=== PATIENT | male | born 1985 | race Two or more races ===

== ENCOUNTER 2017-10-10 15:17 | Inpatient (IN) | payer MEDICAID, OTHER ==
[~2017-10-10] VITALS: Ht 182.9 cm; Wt 106.6 kg
[~2017-10-10 15:17] MED LIST: ALBU8HFA IH; BENZ1TAB70 PO; BUSP10TA23 PO; DIVA500T52 PO; DSS100 PO; GABA-533 PO; HALO10TA15 PO; HYDR25TA PO; QUET100T PO
[2017-10-10] MEDS ORDERED: DIPH25 PO (15:24)
[2017-10-10 15:58] LABS: BASOPHILS % (AUTO) 0.6 % (0.0-2.0); EOSINOPHILS % (AUTO) 0.6 % (1.0-6.0); HEMATOCRIT 44.4 % (41-53); HEMOGLOBIN 15.4 g/dL (13.5-17.5); LYMPHOCYTES # (AUTO) 1.9 K/uL (1.0-4.8); MEAN CORPUSCULAR HEMOGLOBIN 31.1 pg (26.0-34.0); MEAN CORPUSCULAR HGB CONC 34.6 G/dL (31.0-37.0); MEAN CORPUSCULAR VOLUME 90 fL (80-100); MONOCYTES # (AUTO) 0.8 K/uL (0.1-1.0); MONOCYTES % (AUTO) 9.3 % (2.0-9.0); NEUTROPHILS # (AUTO) 5.9 K/uL (1.8-7.7); NEUTROPHILS % (AUTO) 67.5 % (40.0-70.0); PLATELET COUNT (AUTO) 302 K/uL (150-450); RED BLOOD CELL COUNT(AUTO) 4.94 MIL/uL (4.50-5.90); RED CELL DISTRIBUTION WIDTH 13.4 % (11.5-14.5); WHITE BLOOD COUNT (AUTO) 8.8 K/uL (4.5-11.0)
[2017-10-10 16:11] LABS: ANION GAP 10 mmol/L (8-16); CALCIUM, TOTAL 9.6 mg/dL (8.8-10.5); CARBON DIOXIDE 25 mmol/L (22-29); CHLORIDE 106 mmol/L (98-107); GLOMERULAR FILTR. RATE CALC > 60 mL/min (>60); SODIUM SERUM 141 mmol/L (136-145); UREA NITROGEN, BLOOD 13 mg/dL (7-18)
[2017-10-10 16:18] LABS: ALANINE AMINOTRANSFERASE 27 U/L (12-78); ALBUMIN 4.2 g/dL (3.4-5.0); BILIRUBIN,TOTAL 0.4 mg/dL (0.1-1.0); TOTAL PROTEIN, SERUM 8.2 g/dL (6.4-8.2)
[2017-10-10 16:28] LABS: VALPROIC ACID < 3 mcg/mL (50-100)
[2017-10-10 16:43] LABS: ASPARTATE AMINOTRANSFERASE 27 U/L (15-37)
[2017-10-10] MEDS ORDERED: LORazepam 2 MG TABLET PO PRN (17:45)
[2017-10-10] MEDS ORDERED: HALOPERIDOL 5 MG TABLET PO PRN (17:45)
[2017-10-10] MEDS ORDERED: LORazepam 2 MG TABLET PO ONE (18:30)
[2017-10-11] MEDS ORDERED: INFLUENZA VIRUS VACCINE QVS 2017-18 (3YR+)/PF 60 MCG/0.5 ML SYRINGE IM ONE (02:15)
[2017-10-11] MEDS ORDERED: PNEUMOCOCCAL VACCINE POLYVALENT 0.5 ML VIAL [PPSV23] IM ONE (02:15)
[2017-10-11 02:27] VITALS: BP 134/86
[2017-10-11] MEDS ORDERED: IBUPROFEN 600 MG TABLET PO PRN (07:45)
[2017-10-11] MEDS ORDERED: ONDANSETRON HCL 4 MG TABLET PO PRN (07:45)
[2017-10-11] MEDS ORDERED: MAG HYDROX/AL HYDROX/SIMETH ES 30 ML SUSPENSION UDCUP PO PRN (07:45)
[2017-10-11] MEDS ORDERED: CloNIDine HCL 0.1 MG TABLET PO PRN (07:45)
[2017-10-11] MEDS ORDERED: BACITRACIN 28.4 GM OINTMENT TP PRN (07:45)
[2017-10-11] MEDS ORDERED: PETROLATUM,WHITE 71 GM JELLY TP PRN (07:45)
[2017-10-11] MEDS ORDERED: ALBUTEROL SULFATE HFA 90 MCG/PUFF 8 GM INHALER IH PRN (07:45)
[2017-10-11] MEDS ORDERED: MAGNESIUM HYDROXIDE SUSPENSION 30 ML UDCUP PO PRN (07:45)
[2017-10-11] MEDS ORDERED: LOPERAMIDE HCL 2 MG CAPSULE PO PRN (07:45)
[2017-10-11] MEDS ORDERED: ACETAMINOPHEN 325 MG TABLET PO PRN (07:45)
[2017-10-11 10:33] LABS: APPEARANCE,URINE CLEAR (CLEAR); GLUCOSE, URINE (UA) NEGATIVE (NEGATIVE); KETONES,URINE NEGATIVE (NEGATIVE); LEUKOCYTE ESTERASE ,URINE NEGATIVE (NEGATIVE); OCCULT BLOOD,URINE NEGATIVE (NEGATIVE); PROTEIN,URINE NEGATIVE (NEGATIVE)
[2017-10-11 10:38] LABS: ADD UA MICROSCOPIC NO
[2017-10-11 12:07] VITALS: BP 137/88
[2017-10-11] MEDS: QUEtiapine FUMARATE 200 MG TABLET PO SCH (16:42)
[2017-10-11 16:46] VITALS: BP 137/92
[2017-10-12] MEDS: QUEtiapine FUMARATE 200 MG TABLET PO SCH ×2 (08:00→16:29)
[2017-10-12 08:23] VITALS: BP 128/67
[2017-10-12 17:15] VITALS: BP 129/79
[2017-10-13] MEDS ORDERED: INFLUENZA VIRUS VACCINE QVS 2017-18 (3YR+)/PF 60 MCG/0.5 ML SYRINGE IM ONE (03:45)
[2017-10-13] MEDS: QUEtiapine FUMARATE 200 MG TABLET PO SCH ×2 (08:07→17:10)
[2017-10-13 09:28] VITALS: BP 128/84
[2017-10-13 17:01] VITALS: BP 119/89
[2017-10-13] MEDS: ZOLPIDEM TARTRATE 10 MG TABLET PO PRN (20:37)
[2017-10-14 08:36] VITALS: BP 132/90
[2017-10-14] MEDS: QUEtiapine FUMARATE 200 MG TABLET PO SCH ×2 (08:38→16:20)
[2017-10-14 16:00] VITALS: BP 124/66
[2017-10-15 08:43] VITALS: BP 115/64
[2017-10-15] MEDS: QUEtiapine FUMARATE 200 MG TABLET PO SCH ×2 (09:20→16:29)
[2017-10-15 16:33] VITALS: BP 132/87
[2017-10-15] MEDS: ZOLPIDEM TARTRATE 10 MG TABLET PO PRN (20:15)
[2017-10-16] MEDS: QUEtiapine FUMARATE 200 MG TABLET PO SCH ×2 (08:22→16:48)
[2017-10-16] MEDS: BENZOCAINE/MENTHOL LOZENGE [8 LOZENGES/PACKET] MM PRN ×2 (08:56→22:58)
[2017-10-16 09:13] VITALS: BP 140/78
[2017-10-16 16:21] VITALS: BP 127/84
[2017-10-17 01:53] VITALS: BP 131/85
[2017-10-17] MEDS: ZOLPIDEM TARTRATE 10 MG TABLET PO PRN (01:54)
[2017-10-17 08:32] VITALS: BP 121/93
[2017-10-17] MEDS: QUEtiapine FUMARATE 200 MG TABLET PO SCH (09:02)
== END 2017-10-17 15:25 | disposition home or self-care (01) | DRG 750 ==
LOC: EMS 15:20 → 3EC 10-11 00:45
PROVIDERS: ADMIT Psychiatry & Neurology Child & Adolescent Psychiatry; ATTEND Psychiatry & Neurology Child & Adolescent Psychiatry
DX: F25.1 Schizoaffective disorder, depressive type (principal); E66.9 Obesity, unspecified; F12.90 Cannabis use, unspecified, uncomplicated; Z71.51 Drug abuse counseling and surveillance of drug abuser; G47.00 Insomnia, unspecified; J45.909 Unspecified asthma, uncomplicated; K59.00 Constipation, unspecified; Z79.899 Other long term (current) drug therapy; Z28.21 Immunization not carried out because of patient refusal
CPT/HCPCS: 99285; G0480

== ENCOUNTER 2018-06-08 16:40 | Inpatient (IN) | payer MEDICAID, OTHER ==
[~2018-06-08] VITALS: Ht 175.3 cm; Wt 103.0 kg
[~2018-06-08 16:40] MED LIST changes: -ALBU8HFA IH; -BENZ1TAB70 PO; -BUSP10TA23 PO; -DIVA500T52 PO; -DSS100 PO; -GABA-533 PO; -HALO10TA15 PO; -HYDR25TA PO
[2018-06-08 18:03] LABS: BASOPHILS % (AUTO) 0.8 % (0.0-2.0); EOSINOPHILS % (AUTO) 1.9 % (1.0-6.0); HEMATOCRIT 48.2 % (41-53); HEMOGLOBIN 16.6 g/dL (13.5-17.5); LYMPHOCYTES # (AUTO) 1.9 K/uL (1.0-4.8); LYMPHOCYTES % (AUTO) 21.4 % (22.0-44.0); MEAN CORPUSCULAR HEMOGLOBIN 30.7 pg (26.0-34.0); MEAN CORPUSCULAR HGB CONC 34.4 G/dL (31.0-37.0); MEAN CORPUSCULAR VOLUME 89 fL (80-100); MONOCYTES # (AUTO) 0.9 K/uL (0.1-1.0); MONOCYTES % (AUTO) 10.1 % (2.0-9.0); NEUTROPHILS # (AUTO) 5.7 K/uL (1.8-7.7); NEUTROPHILS % (AUTO) 65.8 % (40.0-70.0); PLATELET COUNT (AUTO) 267 K/uL (150-450); RED BLOOD CELL COUNT(AUTO) 5.41 MIL/uL (4.50-5.90); RED CELL DISTRIBUTION WIDTH 13.8 % (11.5-14.5)
[2018-06-08 18:13] LABS: ANION GAP 11 mmol/L (8-16); CALCIUM, TOTAL 9.9 mg/dL (8.8-10.5); CARBON DIOXIDE 26 mmol/L (22-29); CHLORIDE 102 mmol/L (98-107); CREATININE 0.88 mg/dL (0.60-1.30); GLOMERULAR FILTR. RATE CALC > 60 mL/min (>60); GLUCOSE,RANDOM 109 mg/dL (70-110); POTASSIUM 3.8 mmol/L (3.5-5.1); SODIUM SERUM 139 mmol/L (136-145); UREA NITROGEN, BLOOD 15 mg/dL (7-18)
[2018-06-08 18:19] LABS: ALANINE AMINOTRANSFERASE 37 U/L (12-78); ALBUMIN 4.3 g/dL (3.4-5.0); ALKALINE PHOSPHATASE 86 U/L (46-116); ASPARTATE AMINOTRANSFERASE 39 U/L (15-37); BILIRUBIN,TOTAL 0.7 mg/dL (0.1-1.0); TOTAL PROTEIN, SERUM 7.8 g/dL (6.4-8.2)
[2018-06-09 09:12] LABS: CHOL/HDL RATIO 3.9 (4.2-7.3)
[2018-06-09] MEDS ORDERED: QUET200T PO (15:27)
[2018-06-09 16:12] VITALS: BP 140/66
[2018-06-09] MEDS ORDERED: ALBUTEROL SULFATE HFA 90 MCG/PUFF 8 GM INHALER IH PRN (16:30)
[2018-06-09] MEDS ORDERED: NICOTINE 14 MG/24 HOUR PATCH TD PRN (16:30)
[2018-06-09] MEDS ORDERED: IBUPROFEN 400 MG TABLET PO PRN (16:30)
[2018-06-09] MEDS ORDERED: ACETAMINOPHEN 325 MG TABLET PO PRN (16:30)
[2018-06-09] MEDS ORDERED: CloNIDine HCL 0.1 MG TABLET PO PRN (16:30)
[2018-06-09] MEDS ORDERED: MAG HYDROX/AL HYDROX/SIMETH ES 30 ML SUSPENSION UDCUP PO PRN (16:30)
[2018-06-09] MEDS ORDERED: ONDANSETRON HCL 4 MG TABLET PO PRN (16:30)
[2018-06-09] MEDS ORDERED: MAGNESIUM HYDROXIDE SUSPENSION 30 ML UDCUP PO PRN (16:30)
[2018-06-09] MEDS ORDERED: DOCUSATE SODIUM 100 MG CAPSULE PO PRN (16:30)
[2018-06-09] MEDS ORDERED: GuaiFENesin/D-METHORPHAN [SUGAR-FREE] 200-20MG/10 ML SYRUP UDCUP PO PRN (16:30)
[2018-06-09] MEDS ORDERED: PETROLATUM,WHITE 71 GM JELLY TP PRN (16:30)
[2018-06-09] MEDS ORDERED: LOPERAMIDE HCL 2 MG CAPSULE PO PRN (16:30)
[2018-06-09] MEDS: BENZTROPINE MESYLATE 0.5 MG TABLET PO SCH (16:42)
[2018-06-09] MEDS: QUEtiapine FUMARATE 300 MG TABLET PO SCH (16:42)
[2018-06-09] MEDS: LORazepam 2 MG TABLET PO PRN (16:42)
[2018-06-10 06:11] VITALS: BP 134/73
[2018-06-10 08:22] VITALS: BP 112/56
[2018-06-10] MEDS: BENZTROPINE MESYLATE 0.5 MG TABLET PO SCH ×2 (08:34→16:32)
[2018-06-10] MEDS: QUEtiapine FUMARATE 300 MG TABLET PO SCH ×2 (08:34→16:32)
[2018-06-10 08:40] LABS: BASOPHILS % (AUTO) 0.9 % (0.0-2.0); EOSINOPHILS % (AUTO) 3.6 % (1.0-6.0); HEMATOCRIT 44.1 % (41-53); HEMOGLOBIN 15.5 g/dL (13.5-17.5); LYMPHOCYTES # (AUTO) 1.4 K/uL (1.0-4.8); LYMPHOCYTES % (AUTO) 20.7 % (22.0-44.0); MEAN CORPUSCULAR HEMOGLOBIN 31.4 pg (26.0-34.0); MEAN CORPUSCULAR HGB CONC 35.1 G/dL (31.0-37.0); MEAN CORPUSCULAR VOLUME 90 fL (80-100); MONOCYTES # (AUTO) 0.6 K/uL (0.1-1.0); MONOCYTES % (AUTO) 8.8 % (2.0-9.0); NEUTROPHILS # (AUTO) 4.5 K/uL (1.8-7.7); PLATELET COUNT (AUTO) 233 K/uL (150-450); RED BLOOD CELL COUNT(AUTO) 4.92 MIL/uL (4.50-5.90); RED CELL DISTRIBUTION WIDTH 13.6 % (11.5-14.5)
[2018-06-10 09:02] LABS: HEMOGLOBIN A1C 5.2 % (4.5-6.2)
[2018-06-10 09:49] LABS: ALANINE AMINOTRANSFERASE 31 U/L (12-78); ALBUMIN 3.5 g/dL (3.4-5.0); ALKALINE PHOSPHATASE 84 U/L (46-116); ANION GAP 11 mmol/L (8-16); ASPARTATE AMINOTRANSFERASE 24 U/L (15-37); BILIRUBIN,TOTAL 0.4 mg/dL (0.1-1.0); CALCIUM, TOTAL 8.6 mg/dL (8.8-10.5); CARBON DIOXIDE 25 mmol/L (22-29); CHLORIDE 103 mmol/L (98-107); CHOL/HDL RATIO 4.1 (4.2-7.3); CHOLESTEROL 126 mg/dL (131-200); CREATININE 0.87 mg/dL (0.60-1.30); GLOMERULAR FILTR. RATE CALC > 60 mL/min (>60); GLUCOSE,RANDOM 98 mg/dL (70-110); HDL CHOLESTEROL 31 mg/dL (40-60); LDL CHOL (CALC.) 68 mg/dL (0-130); POTASSIUM 3.6 mmol/L (3.5-5.1); SODIUM SERUM 139 mmol/L (136-145); THYROID STIMULATING HORMONE 1.47 uIU/mL (0.36-3.74); TOTAL PROTEIN, SERUM 6.5 g/dL (6.4-8.2); TRIGLYCERIDES 134 mg/dL (15-150); UREA NITROGEN, BLOOD 14 mg/dL (7-18)
[2018-06-10 16:00] VITALS: BP 124/77
[2018-06-11 02:23] VITALS: BP 122/78
[2018-06-11 08:05] VITALS: BP 140/82
[2018-06-11] MEDS: QUEtiapine FUMARATE 300 MG TABLET PO SCH ×2 (08:35→16:39)
[2018-06-11] MEDS: BENZTROPINE MESYLATE 0.5 MG TABLET PO SCH ×2 (08:36→16:39)
[2018-06-11 16:26] VITALS: BP 130/78
[2018-06-11] MEDS: LORazepam 2 MG TABLET PO PRN ×2 (16:39→21:01)
[2018-06-11] MEDS: ZOLPIDEM TARTRATE 10 MG TABLET PO PRN (21:01)
[2018-06-12 02:30] VITALS: BP 127/72
[2018-06-12 08:00] VITALS: BP 134/82
[2018-06-12] MEDS: BENZTROPINE MESYLATE 0.5 MG TABLET PO SCH ×2 (09:05→16:09)
[2018-06-12] MEDS: QUEtiapine FUMARATE 200 MG TABLET PO SCH ×2 (09:05→16:10)
[2018-06-12 16:00] VITALS: BP 140/86
[2018-06-12] MEDS: LORazepam 2 MG TABLET PO PRN (16:10)
[2018-06-12] MEDS: ZOLPIDEM TARTRATE 10 MG TABLET PO PRN (20:05)
[2018-06-13 00:05] VITALS: BP 127/83
[2018-06-13 08:00] VITALS: BP 139/85
[2018-06-13] MEDS: QUEtiapine FUMARATE 200 MG TABLET PO SCH ×2 (08:14→16:09)
[2018-06-13] MEDS: BENZTROPINE MESYLATE 0.5 MG TABLET PO SCH ×2 (08:14→16:10)
[2018-06-13] MEDS: LORazepam 2 MG TABLET PO PRN ×2 (09:17→16:10)
[2018-06-13 16:12] VITALS: BP 145/90
[2018-06-14 06:06] VITALS: BP 125/82
[2018-06-14 08:08] VITALS: BP 128/73
[2018-06-14] MEDS: LORazepam 2 MG TABLET PO PRN ×2 (08:47→17:03)
[2018-06-14] MEDS: QUEtiapine FUMARATE 200 MG TABLET PO SCH ×2 (08:47→17:03)
[2018-06-14] MEDS: BENZTROPINE MESYLATE 0.5 MG TABLET PO SCH ×2 (08:47→17:03)
[2018-06-14 16:07] VITALS: BP 138/73
[2018-06-15 01:57] VITALS: BP 138/79
[2018-06-15 08:05] VITALS: BP 136/75
[2018-06-15] MEDS: QUEtiapine FUMARATE 200 MG TABLET PO SCH ×2 (08:52→16:38)
[2018-06-15] MEDS: BENZTROPINE MESYLATE 0.5 MG TABLET PO SCH ×2 (08:52→16:38)
[2018-06-15 16:05] VITALS: BP 132/88
[2018-06-15] MEDS: LORazepam 2 MG TABLET PO PRN (16:38)
[2018-06-16 00:12] VITALS: BP 125/62
[2018-06-16 08:08] VITALS: BP 132/88
[2018-06-16] MEDS: QUEtiapine FUMARATE 200 MG TABLET PO SCH ×2 (08:43→16:41)
[2018-06-16] MEDS: BENZTROPINE MESYLATE 0.5 MG TABLET PO SCH ×2 (08:43→16:41)
[2018-06-16 16:39] VITALS: BP 135/75
[2018-06-16] MEDS: LORazepam 2 MG TABLET PO PRN (16:41)
[2018-06-16 17:06] VITALS: BP 138/75
[2018-06-16] MEDS: ZOLPIDEM TARTRATE 10 MG TABLET PO PRN (20:19)
[2018-06-16] MEDS: HALOPERIDOL 5 MG TABLET PO PRN (20:27)
[2018-06-17 00:23] VITALS: BP 116/73
[2018-06-17 08:08] VITALS: BP 140/73
[2018-06-17] MEDS: BENZTROPINE MESYLATE 0.5 MG TABLET PO SCH ×2 (08:31→16:07)
[2018-06-17] MEDS: QUEtiapine FUMARATE 200 MG TABLET PO SCH ×2 (08:31→16:07)
[2018-06-17] MEDS: HALOPERIDOL 5 MG TABLET PO PRN (16:07)
[2018-06-17 16:08] VITALS: BP 130/79
[2018-06-17] MEDS: ZOLPIDEM TARTRATE 10 MG TABLET PO PRN (20:38)
[2018-06-18 06:46] VITALS: BP 122/82
[2018-06-18 08:56] VITALS: BP 134/84
[2018-06-18] MEDS: QUEtiapine FUMARATE 200 MG TABLET PO SCH ×2 (09:24→16:39)
[2018-06-18] MEDS: LORazepam 2 MG TABLET PO PRN ×2 (09:24→20:40)
[2018-06-18] MEDS: BENZTROPINE MESYLATE 0.5 MG TABLET PO SCH (09:25)
[2018-06-18 16:32] VITALS: BP 132/80
[2018-06-18] MEDS ORDERED: BENZTROPINE MESYLATE 1 MG TABLET PO SCH (17:00)
[2018-06-18] MEDS: ZOLPIDEM TARTRATE 10 MG TABLET PO PRN (20:40)
[2018-06-19 05:38] VITALS: BP 138/88
[2018-06-19 08:00] VITALS: BP 140/86
[2018-06-19] MEDS: LORazepam 2 MG TABLET PO PRN ×3 (09:15→20:30)
[2018-06-19] MEDS: QUEtiapine FUMARATE 200 MG TABLET PO SCH ×2 (09:15→16:18)
[2018-06-19] MEDS: BENZTROPINE MESYLATE 0.5 MG TABLET PO SCH ×2 (09:15→16:18)
[2018-06-19] MEDS: HALOPERIDOL 5 MG TABLET PO PRN (14:57)
[2018-06-19 16:00] VITALS: BP 134/85
[2018-06-19] MEDS: ZOLPIDEM TARTRATE 10 MG TABLET PO PRN (20:30)
[2018-06-20 02:10] VITALS: BP 135/68
[2018-06-20 08:09] VITALS: BP 128/90
[2018-06-20] MEDS: QUEtiapine FUMARATE 200 MG TABLET PO SCH ×2 (08:32→16:54)
[2018-06-20] MEDS: BENZTROPINE MESYLATE 0.5 MG TABLET PO SCH ×2 (08:32→16:54)
[2018-06-20] MEDS: LORazepam 2 MG TABLET PO PRN ×2 (09:21→16:54)
[2018-06-20] MEDS: HALOPERIDOL 5 MG TABLET PO PRN ×2 (09:21→16:54)
[2018-06-20 16:45] VITALS: BP 112/68
[2018-06-21 06:00] VITALS: BP 115/68
[2018-06-21 08:00] VITALS: BP 131/71
[2018-06-21] MEDS: QUEtiapine FUMARATE 200 MG TABLET PO SCH ×2 (08:39→16:34)
[2018-06-21] MEDS: BENZTROPINE MESYLATE 0.5 MG TABLET PO SCH ×2 (08:39→16:34)
[2018-06-21 16:00] VITALS: BP 128/79
[2018-06-21] MEDS: HALOPERIDOL 5 MG TABLET PO PRN (16:34)
[2018-06-21] MEDS: LORazepam 2 MG TABLET PO PRN (16:34)
[2018-06-22 06:23] VITALS: BP 125/83
[2018-06-22 08:26] VITALS: BP 142/82
[2018-06-22] MEDS: QUEtiapine FUMARATE 200 MG TABLET PO SCH ×2 (08:44→16:51)
[2018-06-22] MEDS: BENZTROPINE MESYLATE 0.5 MG TABLET PO SCH ×2 (08:44→16:50)
[2018-06-22 16:10] VITALS: BP 122/74
[2018-06-22] MEDS: HALOPERIDOL 5 MG TABLET PO PRN (16:50)
[2018-06-22] MEDS: LORazepam 2 MG TABLET PO PRN ×2 (16:50→20:50)
[2018-06-22] MEDS: ZOLPIDEM TARTRATE 10 MG TABLET PO PRN (20:50)
[2018-06-23 06:43] VITALS: BP 132/75
[2018-06-23 08:05] VITALS: BP 121/75
[2018-06-23] MEDS: QUEtiapine FUMARATE 200 MG TABLET PO SCH ×2 (08:22→16:22)
[2018-06-23] MEDS: BENZTROPINE MESYLATE 0.5 MG TABLET PO SCH ×2 (08:22→16:22)
[2018-06-23 16:00] VITALS: BP 122/73
[2018-06-23] MEDS: HALOPERIDOL 5 MG TABLET PO PRN (16:22)
[2018-06-23] MEDS: LORazepam 2 MG TABLET PO PRN (16:22)
[2018-06-24 02:16] VITALS: BP 119/70
[2018-06-24 08:06] VITALS: BP 140/83
[2018-06-24] MEDS: QUEtiapine FUMARATE 200 MG TABLET PO SCH ×2 (08:06→16:30)
[2018-06-24] MEDS: BENZTROPINE MESYLATE 0.5 MG TABLET PO SCH ×2 (08:06→16:30)
[2018-06-24 16:00] VITALS: BP 126/85
[2018-06-24] MEDS: LORazepam 2 MG TABLET PO PRN (16:30)
[2018-06-25 06:22] VITALS: BP 136/63
[2018-06-25 08:05] VITALS: BP 135/84
[2018-06-25] MEDS: LORazepam 2 MG TABLET PO PRN ×2 (08:31→16:40)
[2018-06-25] MEDS: HALOPERIDOL 5 MG TABLET PO PRN ×2 (08:31→16:40)
[2018-06-25] MEDS: QUEtiapine FUMARATE 200 MG TABLET PO SCH ×2 (08:31→16:40)
[2018-06-25] MEDS: BENZTROPINE MESYLATE 0.5 MG TABLET PO SCH ×2 (08:31→16:39)
[2018-06-25 16:00] VITALS: BP 136/88
[2018-06-25] MEDS: ZOLPIDEM TARTRATE 10 MG TABLET PO PRN (20:23)
[2018-06-26 00:23] VITALS: BP 106/61
[2018-06-26 08:32] VITALS: BP 121/69
[2018-06-26] MEDS: QUEtiapine FUMARATE 200 MG TABLET PO SCH ×2 (08:40→16:36)
[2018-06-26] MEDS: LORazepam 2 MG TABLET PO PRN (08:40)
[2018-06-26] MEDS: BENZTROPINE MESYLATE 0.5 MG TABLET PO SCH ×2 (08:40→16:36)
[2018-06-26] MEDS: HALOPERIDOL 5 MG TABLET PO PRN (08:40)
[2018-06-26 16:07] VITALS: BP 128/85
[2018-06-26] MEDS: ZOLPIDEM TARTRATE 10 MG TABLET PO PRN (20:29)
[2018-06-27 02:56] VITALS: BP 121/81
[2018-06-27] MEDS: BENZTROPINE MESYLATE 0.5 MG TABLET PO SCH ×2 (08:33→16:54)
[2018-06-27] MEDS: QUEtiapine FUMARATE 200 MG TABLET PO SCH ×2 (08:33→16:54)
[2018-06-27 10:45] VITALS: BP 136/82
[2018-06-27 16:28] VITALS: BP 136/79
[2018-06-27] MEDS: LORazepam 2 MG TABLET PO PRN (16:54)
[2018-06-27] MEDS: HALOPERIDOL 5 MG TABLET PO PRN (16:54)
[2018-06-28 02:18] VITALS: BP 134/76
[2018-06-28 08:05] VITALS: BP 130/82
[2018-06-28] MEDS: QUEtiapine FUMARATE 200 MG TABLET PO SCH ×2 (08:35→16:31)
[2018-06-28] MEDS: BENZTROPINE MESYLATE 0.5 MG TABLET PO SCH ×2 (08:35→16:31)
[2018-06-28] MEDS: LORazepam 2 MG TABLET PO PRN (16:31)
[2018-06-28] MEDS: HALOPERIDOL 5 MG TABLET PO PRN (16:31)
[2018-06-28 16:58] VITALS: BP 101/66
[2018-06-29 00:25] VITALS: BP 115/69
[2018-06-29 08:06] VITALS: BP 134/76
[2018-06-29] MEDS: QUEtiapine FUMARATE 200 MG TABLET PO SCH ×2 (08:17→16:37)
[2018-06-29] MEDS: BENZTROPINE MESYLATE 0.5 MG TABLET PO SCH ×2 (08:18→16:37)
[2018-06-29 16:23] VITALS: BP 135/83
[2018-06-29] MEDS: LORazepam 2 MG TABLET PO PRN (16:37)
[2018-06-30 06:33] VITALS: BP 121/78
[2018-06-30] MEDS: BENZTROPINE MESYLATE 0.5 MG TABLET PO SCH ×2 (08:03→16:40)
[2018-06-30] MEDS: QUEtiapine FUMARATE 200 MG TABLET PO SCH ×2 (08:04→16:41)
[2018-06-30] MEDS: LORazepam 2 MG TABLET PO PRN ×2 (08:04→16:41)
[2018-06-30 08:08] VITALS: BP 137/91
[2018-06-30 16:08] VITALS: BP 126/82
[2018-06-30] MEDS: HALOPERIDOL 5 MG TABLET PO PRN (16:41)
[2018-06-30] MEDS: ZOLPIDEM TARTRATE 10 MG TABLET PO PRN (20:25)
[2018-07-01 06:27] VITALS: BP 123/85
[2018-07-01 08:09] VITALS: BP 122/82
[2018-07-01] MEDS: BENZTROPINE MESYLATE 0.5 MG TABLET PO SCH ×2 (08:44→16:12)
[2018-07-01] MEDS: QUEtiapine FUMARATE 200 MG TABLET PO SCH ×2 (08:44→16:12)
[2018-07-01] MEDS: LORazepam 2 MG TABLET PO PRN (16:12)
[2018-07-01 16:19] VITALS: BP 136/89
[2018-07-02 06:30] VITALS: BP 121/72
[2018-07-02 08:13] VITALS: BP 128/75
[2018-07-02] MEDS: QUEtiapine FUMARATE 200 MG TABLET PO SCH ×2 (08:55→16:11)
[2018-07-02] MEDS: BENZTROPINE MESYLATE 0.5 MG TABLET PO SCH ×2 (08:55→16:11)
[2018-07-02 16:00] VITALS: BP 134/81
[2018-07-02] MEDS: LORazepam 2 MG TABLET PO PRN (16:11)
[2018-07-03 06:10] VITALS: BP 133/78
[2018-07-03 08:11] VITALS: BP 127/70
[2018-07-03] MEDS: BENZTROPINE MESYLATE 0.5 MG TABLET PO SCH ×2 (08:11→17:02)
[2018-07-03] MEDS: QUEtiapine FUMARATE 200 MG TABLET PO SCH ×2 (08:11→17:02)
[2018-07-03] MEDS: LORazepam 2 MG TABLET PO PRN ×2 (09:37→17:02)
[2018-07-03] MEDS: HALOPERIDOL 5 MG TABLET PO PRN (09:37)
[2018-07-03 16:26] VITALS: BP 105/63
[2018-07-04 06:37] VITALS: BP 118/72
[2018-07-04] MEDS: BENZTROPINE MESYLATE 0.5 MG TABLET PO SCH ×2 (08:25→16:49)
[2018-07-04] MEDS: QUEtiapine FUMARATE 200 MG TABLET PO SCH ×2 (08:25→16:49)
[2018-07-04 08:29] VITALS: BP 132/67
[2018-07-04 16:08] VITALS: BP 131/83
[2018-07-04] MEDS: LORazepam 2 MG TABLET PO PRN (16:50)
[2018-07-04] MEDS: HALOPERIDOL 5 MG TABLET PO PRN (16:50)
[2018-07-04] MEDS: ZOLPIDEM TARTRATE 10 MG TABLET PO PRN (20:25)
[2018-07-05 06:30] VITALS: BP 114/62
[2018-07-05] MEDS: BENZTROPINE MESYLATE 0.5 MG TABLET PO SCH ×2 (08:32→16:33)
[2018-07-05] MEDS: QUEtiapine FUMARATE 200 MG TABLET PO SCH ×2 (08:33→16:33)
[2018-07-05 08:44] VITALS: BP 130/82
[2018-07-05 16:00] VITALS: BP 136/71
[2018-07-05] MEDS: LORazepam 2 MG TABLET PO PRN (16:33)
[2018-07-05] MEDS: HALOPERIDOL 5 MG TABLET PO PRN (16:33)
[2018-07-05] MEDS: ZOLPIDEM TARTRATE 10 MG TABLET PO PRN (20:16)
[2018-07-06 06:38] VITALS: BP 119/83
[2018-07-06 08:05] VITALS: BP 138/85
[2018-07-06] MEDS: BENZTROPINE MESYLATE 0.5 MG TABLET PO SCH ×2 (08:16→16:55)
[2018-07-06] MEDS: QUEtiapine FUMARATE 200 MG TABLET PO SCH ×2 (08:16→16:55)
[2018-07-06 16:00] VITALS: BP 132/78
[2018-07-06] MEDS: LORazepam 2 MG TABLET PO PRN ×2 (16:55→21:20)
[2018-07-06] MEDS: ZOLPIDEM TARTRATE 10 MG TABLET PO PRN (21:20)
[2018-07-07 05:28] VITALS: BP 123/85
[2018-07-07 08:06] VITALS: BP 129/91
[2018-07-07] MEDS: QUEtiapine FUMARATE 200 MG TABLET PO SCH ×2 (08:08→16:09)
[2018-07-07] MEDS: BENZTROPINE MESYLATE 0.5 MG TABLET PO SCH ×2 (08:08→16:08)
[2018-07-07] MEDS: HALOPERIDOL 5 MG TABLET PO PRN (09:06)
[2018-07-07] MEDS: LORazepam 2 MG TABLET PO PRN ×3 (09:06→20:15)
[2018-07-07 16:00] VITALS: BP 137/78
[2018-07-07] MEDS: ZOLPIDEM TARTRATE 10 MG TABLET PO PRN (20:15)
[2018-07-08 06:49] VITALS: BP 125/75
[2018-07-08 08:23] VITALS: BP 137/64
[2018-07-08] MEDS: QUEtiapine FUMARATE 200 MG TABLET PO SCH ×2 (08:32→16:14)
[2018-07-08] MEDS: BENZTROPINE MESYLATE 0.5 MG TABLET PO SCH ×2 (08:32→16:14)
[2018-07-08] MEDS: LORazepam 2 MG TABLET PO PRN ×2 (12:20→16:27)
[2018-07-08 16:00] VITALS: BP 131/75
[2018-07-08] MEDS: HALOPERIDOL 5 MG TABLET PO PRN (16:27)
[2018-07-09 07:03] VITALS: BP 128/72
[2018-07-09 08:06] VITALS: BP 120/77
[2018-07-09] MEDS: BENZTROPINE MESYLATE 0.5 MG TABLET PO SCH ×2 (09:00→17:02)
[2018-07-09] MEDS: QUEtiapine FUMARATE 200 MG TABLET PO SCH ×2 (09:00→17:02)
[2018-07-09] MEDS: LORazepam 2 MG TABLET PO PRN ×2 (09:00→17:02)
[2018-07-09 16:00] VITALS: BP 135/84
[2018-07-10 02:06] VITALS: BP 122/67
[2018-07-10] MEDS: QUEtiapine FUMARATE 200 MG TABLET PO SCH ×2 (08:48→16:39)
[2018-07-10] MEDS: BENZTROPINE MESYLATE 0.5 MG TABLET PO SCH ×2 (08:48→16:39)
[2018-07-10 09:12] VITALS: BP 122/74
[2018-07-10] MEDS: HALOPERIDOL 5 MG TABLET PO PRN ×2 (09:40→16:40)
[2018-07-10] MEDS: LORazepam 2 MG TABLET PO PRN ×2 (09:40→16:40)
[2018-07-10 19:09] VITALS: BP 132/80
[2018-07-10] MEDS: ZOLPIDEM TARTRATE 10 MG TABLET PO PRN (20:41)
[2018-07-11 06:26] VITALS: BP 130/76
[2018-07-11 08:03] VITALS: BP 140/72
[2018-07-11] MEDS: QUEtiapine FUMARATE 200 MG TABLET PO SCH ×2 (09:06→17:01)
[2018-07-11] MEDS: BENZTROPINE MESYLATE 0.5 MG TABLET PO SCH ×2 (09:06→17:01)
[2018-07-11] MEDS: LORazepam 2 MG TABLET PO PRN ×2 (09:06→17:01)
[2018-07-11 16:53] VITALS: BP 128/86
[2018-07-12 07:18] VITALS: BP 134/82
[2018-07-12 08:07] VITALS: BP 130/74
[2018-07-12] MEDS: QUEtiapine FUMARATE 200 MG TABLET PO SCH ×2 (09:02→17:11)
[2018-07-12] MEDS: BENZTROPINE MESYLATE 0.5 MG TABLET PO SCH ×2 (09:02→17:11)
[2018-07-12] MEDS: HALOPERIDOL 5 MG TABLET PO PRN (09:02)
[2018-07-12] MEDS: LORazepam 2 MG TABLET PO PRN ×2 (09:02→17:12)
[2018-07-12 16:08] VITALS: BP 112/63
[2018-07-13 06:10] VITALS: BP 110/75
[2018-07-13] MEDS: BENZTROPINE MESYLATE 0.5 MG TABLET PO SCH ×2 (08:23→17:09)
[2018-07-13] MEDS: HALOPERIDOL 5 MG TABLET PO PRN (08:23)
[2018-07-13] MEDS: LORazepam 2 MG TABLET PO PRN ×2 (08:23→17:09)
[2018-07-13] MEDS: QUEtiapine FUMARATE 200 MG TABLET PO SCH ×2 (08:23→17:09)
[2018-07-13 08:31] VITALS: BP 134/83
[2018-07-13 16:00] VITALS: BP 132/84
[2018-07-14 03:43] VITALS: BP 128/81
[2018-07-14 08:08] VITALS: BP 137/85
[2018-07-14] MEDS: BENZTROPINE MESYLATE 0.5 MG TABLET PO SCH ×2 (08:32→16:31)
[2018-07-14] MEDS: QUEtiapine FUMARATE 200 MG TABLET PO SCH ×2 (08:32→16:31)
[2018-07-14 16:20] VITALS: BP 123/78
[2018-07-14] MEDS: HALOPERIDOL 5 MG TABLET PO PRN (16:32)
[2018-07-14] MEDS: LORazepam 2 MG TABLET PO PRN (16:32)
[2018-07-14] MEDS: ZOLPIDEM TARTRATE 10 MG TABLET PO PRN (20:15)
[2018-07-15 05:40] VITALS: BP 129/74
[2018-07-15 08:05] VITALS: BP 126/72
[2018-07-15] MEDS: BENZTROPINE MESYLATE 0.5 MG TABLET PO SCH ×2 (08:33→17:05)
[2018-07-15] MEDS: QUEtiapine FUMARATE 200 MG TABLET PO SCH ×2 (08:33→17:05)
[2018-07-15 16:00] VITALS: BP 130/82
[2018-07-15] MEDS: LORazepam 2 MG TABLET PO PRN (17:05)
[2018-07-16 00:07] VITALS: BP 125/77
[2018-07-16] MEDS: QUEtiapine FUMARATE 200 MG TABLET PO SCH ×2 (08:00→16:51)
[2018-07-16] MEDS: BENZTROPINE MESYLATE 0.5 MG TABLET PO SCH ×2 (08:00→16:51)
[2018-07-16 08:04] VITALS: BP 127/80
[2018-07-16 16:03] VITALS: BP 126/80
[2018-07-16] MEDS: LORazepam 2 MG TABLET PO PRN (16:51)
[2018-07-17 06:40] VITALS: BP 142/88
[2018-07-17 08:04] VITALS: BP 130/64
[2018-07-17] MEDS: LORazepam 2 MG TABLET PO PRN (08:05)
[2018-07-17] MEDS: BENZTROPINE MESYLATE 0.5 MG TABLET PO SCH (08:05)
[2018-07-17] MEDS: QUEtiapine FUMARATE 200 MG TABLET PO SCH (08:05)
[2018-07-17] MEDS ORDERED: BENZ0.5T44 PO (10:17)
[2018-07-17] MEDS ORDERED: QUET400T PO (10:18)
[2018-07-17] MEDS: HALOPERIDOL 5 MG TABLET PO PRN (11:07)
[2018-07-17 16:16] VITALS: BP 134/80
== END 2018-07-17 16:50 | disposition home or self-care (01) | DRG 750 ==
LOC: EMS 16:41 → B3A 06-09 12:35
PROVIDERS: ADMIT Psychiatry & Neurology Psychiatry; ATTEND Psychiatry & Neurology Psychiatry
DX: F20.0 Paranoid schizophrenia (principal); Z91.19 Patient's noncompliance with other medical treatment and regimen; F10.10 Alcohol abuse, uncomplicated; F32.9 Major depressive disorder, single episode, unspecified; F19.10 Other psychoactive substance abuse, uncomplicated; F12.90 Cannabis use, unspecified, uncomplicated; I10 Essential (primary) hypertension; Z71.41 Alcohol abuse counseling and surveillance of alcoholic; Z71.51 Drug abuse counseling and surveillance of drug abuser; Z79.899 Other long term (current) drug therapy
CPT/HCPCS: 83036; 84443; 87081; 99285; G0480